=== PATIENT | female | born 1945 | race Two or more races ===

== ENCOUNTER 2020-04-23 14:49 | Inpatient (IN) | payer OTHER ==
[~2020-04-23] VITALS: Ht 154.9 cm; Wt 62.1 kg
[2020-05-09] MEDS ORDERED: AMLODIPINE BESY10 MG PO (11:53)
[2020-05-09] MEDS ORDERED: LISINOPRIL40 MG PO (11:54)
[2020-05-09] MEDS ORDERED: DILANTIN100 MG PO (11:55)
[2020-05-09] MEDS ORDERED: FOSAMAX70 MG PO (11:55)
[2020-05-09] MEDS ORDERED: NOXIFOL-D32500 UNIT PO (14:04)
[2020-05-09] MEDS ORDERED: VITAMIN E400 UNI5 PO (14:04)
[2020-05-09] MEDS ORDERED: VITAMIN C100 MG PO (14:05)
[2020-05-09] MEDS ORDERED: PRESERVISION A1 EAC3 PO (14:05)
== END 2020-05-17 18:51 | disposition home or self-care (01) | DRG 395 ==
LOC: SURH 05-16 08:30 → O/R 05-16 10:17 → SURH 05-16 19:21
PROVIDERS: ADMIT Colon & Rectal Surgery; ATTEND Colon & Rectal Surgery
PROC: 0DBP8ZZ Excision of Rectum, Via Natural or Artificial Opening Endoscopic (ICD-10-PCS; principal; 2020-05-16 08:30)
DX: D12.8 Benign neoplasm of rectum (principal); I11.9 Hypertensive heart disease without heart failure

== ENCOUNTER 2022-01-10 12:45 | Inpatient (IN) | payer OTHER ==
[~2022-01-10] VITALS: Ht 157.5 cm; Wt 61.7 kg
[~2022-01-10 12:45] MED LIST: AMLODIPINE BESY10 MG PO; DILANTIN100 MG PO; FOSAMAX70 MG PO; LISINOPRIL40 MG PO; NOXIFOL-D32500 UNIT PO; PRESERVISION A1 EAC3 PO; VITAMIN C100 MG PO; VITAMIN E400 UNI5 PO
== END 2022-01-15 13:41 | disposition home or self-care (01) | DRG 395 ==
LOC: SURH 01-14 07:00 → O/R 01-14 09:57 → SURH 01-14 12:45
PROVIDERS: ADMIT Colon & Rectal Surgery; ATTEND Colon & Rectal Surgery
PROC: 0DBP8ZZ Excision of Rectum, Via Natural or Artificial Opening Endoscopic (ICD-10-PCS; principal; 2022-01-14 07:00)
DX: D12.8 Benign neoplasm of rectum (principal); Z20.822 Contact with and (suspected) exposure to COVID-19